=== PATIENT | female | born 1985 | race Caucasian/White ===

== ENCOUNTER 2019-08-27 21:11 | Emergency (ER) | payer MEDICAID ==
[~2019-08-27] VITALS: Ht 175.3 cm; Wt 117.0 kg
[2019-08-27] MEDS ORDERED: ONDANSETRON ODT 4 MG ONE (21:57)
[2019-08-27] MEDS ORDERED: SODIUM CHLORIDE FLUSH 10ML SYR IVF ONE (22:00)
[2019-08-27] MEDS: SODIUM CHLORIDE 0.9% 1,000ML IVBOLUS ONE (22:00)
--- NOTE | 2019-08-27 22:01 | NUR ---
IV ESTABLISHED, SALINE BOLUS STARTED.
[2019-08-27] MEDS ORDERED: LORazepam 2 MG/ML, 1ML ONE (22:15)
[2019-08-27] MEDS ORDERED: ONDANSETRON 2MG/ML, 2ML ONE (22:15)
[2019-08-27] MEDS: FAMOTIDINE 20 MG/2 ML IVPush ONE (22:20)
[2019-08-27] MEDS: ONDANSETRON 2MG/ML, 2ML IVPush ONE (22:20)
[2019-08-27] MEDS: LORazepam 2 MG/ML, 1ML IVPush ONE (22:20)
[2019-08-27 22:41] LABS: BASOPHILS # (AUTO) 0.03 x10^3/uL (0-0.1); BASOPHILS % (AUTO) 0 % (0-1); EOSINOPHILS # (AUTO) 0.31 x10^3/uL (0-0.4); EOSINOPHILS % (AUTO) 3 % (1-7); LYMPHOCYTES # (AUTO) 1.67 x10^3/uL (1-3.4); LYMPHOCYTES % (AUTO) 15 % (22-44); MD NO; MEAN CORPUSCULAR HEMOGLOBIN 30.3 pg (27.0-34.8); MEAN CORPUSCULAR VOLUME 91.8 fL (80-100); MEAN PLATELET VOLUME 9.3 fL (7.4-10.4); MONOCYTES # (AUTO) 0.38 x10^3/uL (0.2-0.8); MONOCYTES % (AUTO) 3 % (2-9); NEUTROPHILS # (AUTO) 8.73 x10^3/uL (1.8-6.8); NEUTROPHILS % (AUTO) 79 % (42-75); PLATELET COUNT 283 x10^3/uL (130-400); RED BLOOD COUNT 4.61 x10^6/uL (3.82-5.3); RED CELL DISTRIBUTION WIDTH 13.8 % (9.6-15.2)
[2019-08-27 22:53] LABS: ALANINE AMINOTRANSFERASE 22 U/L (12-78); ALBUMIN 4.2 g/dL (3.4-5.0); ANION GAP 7 mmol/L (5-15); CALCIUM 9.4 mg/dL (8.5-10.1); CHLORIDE 109 mmol/L (98-107)
[2019-08-27 22:55] LABS: ALKALINE PHOSPHATASE 76 U/L (45-117); BILIRUBIN,TOTAL 0.5 mg/dL (0.2-1.0); TOTAL PROTEIN 8.2 g/dL (6.4-8.2)
--- NOTE | 2019-08-27 23:02 | NUR ---
PT REQUESTING MORE ATIVAN AND A GI COCKTAIL DESPITE FREQUENT VOMITING. PER ERP, OK TO GIVE GI COCKTAIL BUT NO NEW ORDERS FOR ATIVAN AT THIS TIME DUE TO PREVIOUS DOSE. PT REFUSING TO KEEP MONITORING EQUIPMENT ON. EDUCATED ON THE NEED FOR THE MONITORING EQUIPMENT.
[2019-08-27] MEDS ORDERED: MAALOX/HYOSCYAMINE/LIDOCAINE 45 ML BTL ONE (23:21)
[2019-08-27] MEDS: MAALOX/HYOSCYAMINE/LIDOCAINE 45 ML BTL PO ONE (23:24)
--- NOTE | 2019-08-27 23:37 | NUR ---
ATTEMPTED TO MEDICATE PT WITH GI COCKTAIL REQUESTED, HOWEVER PT STILL VOMITING. STILL WILL NOT KEEP MONITORING EQUIPMENT ON.
--- NOTE | 2019-08-27 23:50 | NUR ---
XRAY CAME TO GET PT FOR ABD XRAYS, PT ACTIVELY VOMITING AT THIS TIME.
--- NOTE | 2019-08-28 00:16 | NUR ---
PT WAS FINALLY ABLE TO TOLERATE IMAGING. PT IS STILL VOMITING. OFFERED MORE ANTIEMTICS BUT STATES "THEY DON'T WORK, I JUST NEED ATIVAN OR DILAUDID". PT VOMITED THE GI COCKTAIL SHE WAS GIVEN.
[2019-08-28] MEDS ORDERED: HYDROmorphone 1 MG/ML, 1ML VIAL ONE (00:32)
[2019-08-28] MEDS: HYDROmorphone 2 MG/ML, 1ML IVPush ONE (00:41)
--- NOTE | 2019-08-28 00:41 | NUR ---
PT MEDICATED PER EMAR. 5 RIGHTS ADDRESSED.
--- NOTE | 2019-08-28 01:08 | NUR ---
REPORT TO KATI DAMON.
--- NOTE | 2019-08-28 01:33 | NUR ---
BREAK RN: DR. MODI WAS IN TO DISCUSS POC WITH PT. AWAITING DISPO. PT. SITTING UP ON EDGE OF [facility], [place] WITH NO DISTRESS NOTED.
[2019-08-28 01:43] VITALS: BP 175/77
--- NOTE | 2019-08-28 02:04 | NUR ---
REPORT OF PT FROM KATI TOSCANO AND ASSUMING CARE AT THIS TIME. PT IS UP FOR D/C. IV D/C WITH TIP INTACT. PT EDUCATED ON HOME CARE AND F/U INSTRUCTIONS AND VERBALIZES UNDERSTANDING. PT VERBALIZES UNDERSTANDING OF D/C SUMMARY AND SCRIPTS. PT AMBULATES TO REGISTRATION DESK TO REGISTRATION DESK WITH STEADY GAIT FOR D/C HOME WITH . PT DENIES ANY OTHER NEEDS PERTAINING TO THIS VISIT.
== END 2019-08-28 02:14 ==
LOC: ED 08-28 02:08
DX: R11.2 Nausea with vomiting, unspecified (principal); Z90.49 Acquired absence of other specified parts of digestive tract
CPT/HCPCS: 36415; 74021; 80053; 83690; 85025; 96361; 96374; 96375; 99284; J1170; J2060; J2405; J3490; J7030